=== PATIENT | female | born 1975 | race Caucasian/White ===

== ENCOUNTER 2021-12-14 09:06 | Emergency (ER) | payer MEDICAID ==
[~2021-12-14] VITALS: Ht 157.5 cm; Wt 70.0 kg
[2021-12-14 10:18] LABS: CHLORIDE 106 mEq/L (98-107)
[2021-12-14 10:21] LABS: BASOPHILS % 0.4 % (0.0-2.0); EOSINOPHILS % 1.4 % (0.0-5.0); HEMATOCRIT. 37.6 % (36.0-48.0); HEMOGLOBIN. 12.1 g/dL (12.0-16.0); LYMPHOCYTES % 29.5 % (20.0-50.0); MEAN CORPUSCULAR VOLUME 80.6 fL (81.0-99.0); MEAN PLATELET VOLUME 7.5 fl (7.4-10.4); MONOCYTES % 6.8 % (2.0-8.0); NEUTROPHILS % 61.9 % (40.0-76.0); PLATELET 346 x1000/uL (130-400); RED BLOOD CELL COUNT 4.67 mill/uL (4.2-5.4); RED CELL DISTRIBUTION WIDTH 15.4 % (11.6-14.6)
[2021-12-14 10:49] LABS: CLARITY URINE CLEAR (CLEAR); COLOR URINE ORANGE (YELLOW); KETONES URINE NEGATIVE (NEGATIVE); LEUKOCYTE ESTERASE URINE TRACE (NEGATIVE); NITRITE URINE NEGATIVE (NEGATIVE); OCCULT BLOOD URINE 3+ (NEGATIVE); PH URINE 5.5 (4.5-8.0); PROTEIN URINE 1+ (NEGATIVE); SPECIFIC GRAVITY URINE 1.022 (1.005-1.030); UROBILINOGEN URINE 0.2 E.U./dL (0.2-1.0)
[2021-12-14 11:04] VITALS: BP 151/78
== END 2021-12-14 12:06 | disposition home or self-care (01) ==
LOC: ER 09:06
DX: D64.9 Anemia, unspecified (principal); K92.1 Melena; N92.5 Other specified irregular menstruation; I10 Essential (primary) hypertension; I45.2 Bifascicular block
CPT/HCPCS: 36415; 71045; 80053; 81003; 83615; 84484; 85025; 86850; 86900; 93005; 99285